=== PATIENT | male | born 1960 | race Caucasian/White ===

== ENCOUNTER 2023-03-26 06:09 | Inpatient (IN) | payer MEDICARE, BC ==
[2023-03-21 11:04] LABS: Basophils # (auto) 0 10 ^3/uL (0-0.2); Basophils % (auto) 0.6 % (0.0-2.0); Eosinophils # (auto) 0.1 10 ^3/uL (0-0.8); Eosinophils % (auto) 0.8 % (0.0-7.0); Hematocrit 45.9 % (41.0-53.0); Hemoglobin 15.6 g/dL (13.5-17.5); Lymphocytes # (auto) 1.5 10 ^3/uL (0.4-5.4); Lymphocytes % (auto) 21.6 % (10.0-50.0); Mean Corpuscular Hemoglobin 27.6 pg (28.0-32.0); Monocytes # (auto) 0.4 10 ^3/uL (0-1.3); Monocytes % (auto) 5.9 % (0.0-12.0); Neutrophils # (auto) 4.9 10 ^3/uL (1.6-8.6); Neutrophils % (auto) 71.1 % (37.0-80.0); Red Blood Cells 5.66 10^6/uL (4.5-5.90); Red Cell Distribution Width 14.7 % (11.8-14.3); White Blood Cell 6.9 10^3/uL (4.4-10.8)
[2023-03-21 11:22] LABS: Urine Bacteria NONE SEEN /hpf (None Seen); Urine Blood Negative /uL (Negative); Urine Hyaline Cast MOD /lpf (0 - 2); Urine Specific Gravity 1.036 (1.001-1.035); Urine WBC <1 /hpf (0 - 3)
[2023-03-21 11:25] LABS: INR 0.94 (0.9-1.15)
[2023-03-21 12:19] LABS: Albumin 3.8 g/dL (3.4-5.0); Calcium 9.4 mg/dL (8.5-10.1); Potassium 4.2 mmol/L (3.5-5.1)
[2023-03-21 12:21] LABS: BUN/Creatinine Ratio 25.6 (10.0-20.0)
[2023-03-21 12:24] LABS: Bilirubin, Total 0.6 mg/dL (0.2-1.0); Total Protein 7.5 g/dL (6.4-8.2)
[~2023-03-26] VITALS: Ht 185.4 cm; Wt 117.3 kg
[~2023-03-26 06:09] MED LIST: ALOG1TAB2 PO; AMLO1TAB23 PO; ATOR40TA52 PO; BACL20TA PO; CHOL500046 PO; EMPA1TAB3 PO; GLIP10TA9 PO; LOSA100T58 PO; MELA3TAB27 PO; MELO-335 PO; METF-372 PO; OMEP20TA PO; PRAM1.5T4 PO; SILD50TA42 PO
[2023-03-26] MEDS ORDERED: ceFAZolin 1GM/50ML 100 ML IV ONE (06:26)
[2023-03-26] MEDS ORDERED: DexAMETHasone SOD PHOS 4 MG/1ML SDV INJ ONE (06:46)
[2023-03-26] MEDS ORDERED: BUPIVACAINE W/ EPINEPH 0.25% INJ 50ML MDV ONE (06:46)
[2023-03-26] MEDS ORDERED: ROCURONIUM 10MG/ML 10ML VIAL IV ONE (06:53)
[2023-03-26] MEDS ORDERED: DOXAPRAM HCL 20 MG/ML 20ML VIAL INJ IV ONE (06:53)
[2023-03-26] MEDS ORDERED: SUCCINYLCHOLINE CHLORIDE 20 MG/ML 10ML VIAL IV ONE (06:53)
[2023-03-26] MEDS ORDERED: ONDANSETRON HCL 4 MG/2 ML VIAL ONE (07:00)
[2023-03-26] MEDS ORDERED: NEOSTIGMINE 1 MG/ML INJ (10mg/10ML VIAL) ONE (07:00)
[2023-03-26] MEDS ORDERED: SODIUM CHLORIDE LOCK 10 ML ONE (07:00)
[2023-03-26] MEDS ORDERED: MIDAZOLAM HCL 2MG/2ML 2ml VIAL (1mg/ml) ONE (07:00)
[2023-03-26] MEDS ORDERED: fentaNYL CITRATE 100 MCG/2 ML VL ONE (07:00)
[2023-03-26] MEDS ORDERED: HYDROmorphone HCL 2 MG/ML VL/or syr ONE ×2 (07:00→11:42)
[2023-03-26] MEDS ORDERED: PROPOFOL 10 MG/ML 20 ML IV ONE (07:00)
[2023-03-26] MEDS ORDERED: DexAMETHasone SOD PHOS 10MG/1ML VIAL INJ ONE (07:00)
[2023-03-26] MEDS ORDERED: TRANEXAMIC ACID 20 ML ONE (07:05)
[2023-03-26] MEDS ORDERED: ACCU-CHEK COMFORT CURVE STRIP VI ONE (07:30)
[2023-03-26] MEDS ORDERED: HYDROmorphone HCL 2 MG/ML VL/or syr IV PRN ×2 (07:30)
[2023-03-26] MEDS ORDERED: METOCLOPRAMIDE HCL 5MG/ml INJ 2ml VIAL IV PRN (07:30)
[2023-03-26] MEDS ORDERED: MORPHINE SULFATE INJ 2 MG/ml SYRG IV PRN ×2 (07:30→11:30)
[2023-03-26] MEDS ORDERED: CLINDAMYCIN 900MG IV 50 ML IV ONE (08:00)
[2023-03-26] MEDS ORDERED: VANCOMYCIN HCL 1000 MG VL ONE ×2 (08:36→09:56)
[2023-03-26] MEDS ORDERED: ceFAZolin 1GM/50ML 50 ML IV SCH ×2 (11:30→14:00)
[2023-03-26] MEDS ORDERED: LACTATED RINGER'S 1,000 ML IV SCH (11:30)
[2023-03-26] MEDS ORDERED: HYDROcodone-ACET 5/325MG TAB PO PRN (11:30)
[2023-03-26] MEDS ORDERED: ACETAMINOPHEN 325 MG TAB PO PRN (11:30)
[2023-03-26] MEDS ORDERED: NITROGLYCERIN 0.4 MG SL TAB SL PRN (11:30)
[2023-03-26] MEDS ORDERED: ONDANSETRON HCL 4 MG/2 ML VIAL IV PRN (11:30)
[2023-03-26 15:29] VITALS: BP 145/85
[2023-03-26 16:06] VITALS: BP 132/66
[2023-03-26 16:12] LABS: Calcium 8.9 mg/dL (8.5-10.1); Potassium 4.2 mmol/L (3.5-5.1)
[2023-03-26] MEDS ORDERED: PRAMIPEXOLE DIHYDROCHLORIDE MO 0.25 MG TAB PO SCH (16:15)
[2023-03-26] MEDS ORDERED: SILDENAFIL CITRATE 50 MG PO SCH (16:45)
[2023-03-26 17:13] VITALS: BP 141/82
[2023-03-26] MEDS ORDERED: MELATONIN 3 MG PO SCH (18:00)
[2023-03-26] MEDS: metFORMIN HYDROCHLORIDE 500 MG TAB PO SCH (18:50)
[2023-03-26] MEDS: ceFAZolin 1GM/50ML 50 ML IV SCH (20:10)
[2023-03-26] MEDS: DOCUSATE SOD 100 MG CAP PO SCH (21:49)
[2023-03-26] MEDS: BACLOFEN 10 MG TAB PO SCH (21:52)
[2023-03-26] MEDS: PANTOPRAZOLE 40 MG TAB PO SCH (21:53)
[2023-03-26] MEDS: HYDROmorphone HCL 2 MG/ML VL/or syr IV PRN (21:56)
[2023-03-26 22:00] VITALS: BP 105/71
[2023-03-26] MEDS ORDERED: glipiZIDE 5 MG TAB PO SCH (22:00)
[2023-03-27] MEDS: ceFAZolin 1GM/50ML 50 ML IV SCH (01:31)
[2023-03-27] MEDS: HYDROmorphone HCL 2 MG/ML VL/or syr IV PRN (03:20)
[2023-03-27 05:00] VITALS: BP 126/76
[2023-03-27] MEDS: BACLOFEN 10 MG TAB PO SCH (05:33)
[2023-03-27 06:24] LABS: Potassium 4.2 mmol/L (3.5-5.1)
[2023-03-27 06:32] LABS: Albumin 3.5 g/dL (3.4-5.0); Bilirubin, Total 0.6 mg/dL (0.2-1.0); Calcium 8.4 mg/dL (8.5-10.1); Total Protein 6.6 g/dL (6.4-8.2)
[2023-03-27 08:19] VITALS: BP 142/85
[2023-03-27] MEDS: DOCUSATE SOD 100 MG CAP PO SCH (08:42)
[2023-03-27] MEDS: metFORMIN HYDROCHLORIDE 500 MG TAB PO SCH (08:43)
[2023-03-27 09:00] VITALS: BP 155/89
[2023-03-27] MEDS ORDERED: ceFAZolin 1GM/50ML 50 ML IV SCH (09:30)
[2023-03-27] MEDS: PANTOPRAZOLE 40 MG TAB PO SCH (09:34)
[2023-03-27] MEDS ORDERED: ALOGLIPTIN BENZOATE 25 MG PO SCH (10:00)
[2023-03-27] MEDS ORDERED: amLODIPine BESYLATE 5 MG TAB PO SCH (10:00)
[2023-03-27] MEDS ORDERED: EMPAGLIFLOZIN 10 MG TAB PO SCH (10:00)
[2023-03-27] MEDS ORDERED: LOSARTAN POTASSIUM 50 MG TAB PO SCH (10:00)
[2023-03-27] MEDS ORDERED: MELOXICAM 15 MG PO SCH (10:00)
[2023-03-27] MEDS ORDERED: ATORVASTATIN 20 MG TAB PO SCH (10:00)
[2023-03-27] MEDS ORDERED: CHOLECALCIFEROL (VITD3) 2,000 UNIT CAP/TAB PO SCH ×2 (10:00)
== END 2023-03-27 10:20 | disposition home or self-care (01) | DRG 483 ==
LOC: SUR 06:09 → OVERFLOW 11:31 → WEST WING 14:18
PROVIDERS: ADMIT Orthopaedic Surgery Sports Medicine; ATTEND Orthopaedic Surgery Sports Medicine
PROC: 0RRJ00Z Replacement of Right Shoulder Joint with Reverse Ball and Socket Synthetic Substitute, Open Approach (ICD-10-PCS; principal; 2023-03-26 07:35)
DX: M12.811 Other specific arthropathies, not elsewhere classified, right shoulder (principal); M75.120 Complete rotator cuff tear or rupture of unspecified shoulder, not specified as traumatic
CPT/HCPCS: 36415; 73020; 76000; 80048; 80053; 81001; 82962; 85025; 85610; 85730; 86850; 86900; 86901; G0378; J0330; J0690; J1100; J2250; J2405; J2704